=== PATIENT | male | born 1980 | race Hispanic/Latino ===

== ENCOUNTER 2022-03-24 09:53 | Emergency (ER) | payer OTHER, MEDICAID ==
[2022-03-24 10:16] LABS: CHLORIDE,CL 103 mmol/L (98-107); SODIUM,NA 141 mmol/L (136-145)
[2022-03-24 10:21] LABS: ANION GAP 15.4 mmol/L (5-15); ESTIMATED GFR 133 mL/min (>=60)
[2022-03-24] MEDS ORDERED: Acetaminophen 325 MG Tab PO ONE (10:36)
== END 2022-03-24 11:25 ==
LOC: VM.ED 09:53
DX: S20.212A Contusion of left front wall of thorax, initial encounter (principal); S00.81XA Abrasion of other part of head, initial encounter; Z91.018 Allergy to other foods; V59.9XXA Occupant (driver) (passenger) of pick-up truck or van injured in unspecified traffic accident, initial encounter; Y92.410 Unspecified street and highway as the place of occurrence of the external cause
CPT/HCPCS: 36415; 71045; 72170; 80048; 85025; 99284; A9270